=== PATIENT | male | born 1985 | race Caucasian/White ===

== ENCOUNTER 2021-01-30 23:19 | Emergency (ER) | payer OTHER ==
[~2021-01-30] VITALS: Ht 175.3 cm; Wt 75.0 kg
--- NOTE | 2021-01-31 00:25 | PHYS DOC ---
Past History Past Medical History: No Pertinent History Past Surgical History: Cholecystectomy Alcohol Use: None Drug Use: None Adult General Chief Complaint Chief Complaint: LOWER EXT PAIN HPI HPI Patient is a 35-year-old male who presents with left knee and foot pain. 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 States that the machine tipped forward and he jumped off the back and when he landed, hurt his left knee and foot. States after about 6 out of 10, sharp in nature. Denies any radiation of the pain. States he is able to walk it just causes discomfort. Denies any other injuries. States he did not take any pain medicine for this. Review of Systems Review of Systems Review of systems otherwise unremarkable except noted in HPI Allergies Allergies Allergies Coded Allergies Type Severity Reaction Last Updated Verified hydrocodone Allergy Intermediate 01/30/21 Yes Physical Exam Physical Exam Constitutional: Well developed, well nourished, no acute distress, non-toxic appearance. [] HENT: Normocephalic, atraumatic, Cardiovascular:Heart rate regular rhythm, no murmur [] Lungs & Thorax: Bilateral breath sounds clear to auscultation [] Abdomen: Bowel sounds normal, soft, no tenderness, no masses, no pulsatile masses. [] Skin: Warm, dry, no erythema, no rash. [] Back: No tenderness, Extremities: Tenderness around the left knee with no obvious bruising or swelling. Tenderness around left foot, generalized with no obvious bruising or swelling Neurologic: Alert and oriented X 3, no focal deficits noted. [] Psychologic: Affect normal, judgement normal, mood normal. [] Current Patient Data Vital Signs Vital Signs Date Time Temp Pulse Resp B/P (MAP) Pulse Ox O2 Delivery O2 Flow Rate FiO2 01/30/21 23:30 98.3 68 18 126/73 (90) 98 Room Air EKG EKG [] Radiology/Procedures Radiology/Procedures []NDICATION: Reason: Abnormal plain film left knee, severe pain and swelling from fall / Spl. Instructions: / History: . COMPARISON: Plain film from earlier same day. TECHNIQUE: Axial CT images obtained through the left knee. One or more of the following individualized dose reduction techniques were utilized for this examination: 1. Automated exposure control; 2. Adjustment of the mA and/or kV according to patient size; 3. Use of iterative reconstruction technique. FINDINGS: Minimally displaced acute appearing fracture is identified at the lateral aspect of the lateral tibial plateau at the region of seen on plain film. No evidence of dislocation. Moderate lipohemarthrosis. Edema of Hoffa's fat pad. IMPRESSION: * Minimally displaced lateral tibial plateau fracture with associated lipohemarthrosis. Electronically signed by: Anshu Lozano MD (01/31/2021 1:56 AM) [id number] Heart Score C/O Chest Pain: No Risk Factors: Risk Factors: DM, Current or recent (<one month) smoker, HTN, HLP, family history of CAD, obesity. Risk Scores: Risk Factors: DM, Current or recent (<one month) smoker, HTN, HLP, family history of CAD, obesity. Course & Med Decision Making Course & Med Decision Making Patient is a 35-year-old male who presents to the emergency department for left knee and foot pain after jumping off a piece of machinery at work Vital signs not concerning. Physical exam noted above. Patient given Tylenol, ibuprofen and ice. Freddie wrap. Imaging notable for minimally displaced lateral tibial plateau fracture with associated lipohemarthrosis. Placed in a posterior long-leg splint. Made nonweightbearing and given crutches. Given Percocet for pain. Discussed all findings with patient and advised nonweightbearing and crutches only when walking. Gave splint care instructions. Advised to call orthopedic surgery at [facility] first thing in the morning to set up a follow- up appointment as soon as possible for continued evaluation and treatment. Also advised to call primary care physician to update them on ED visit. Gave return precautions to the ED. Patient grateful, verbalized understanding and agreed with plan of discharge. Dragon Disclaimer Dragon Disclaimer This electronic medical record was generated, in whole or in part, using a voice recognition dictation system. Departure Departure: Impression: Primary Impression: Tibial plateau fracture, left Disposition: 01 HOME / SELF CARE / HOMELESS Condition: GOOD Referrals: DANIELLA CRAVEN APRN (PCP) Patient Instructions: Splint Care-Brief, Tibial Plateau Fracture, Displaced, Adult Additional Instructions: Please read all of the attached information on your diagnosis. Please take your pain medicine as prescribed. Please use your crutches at all times when you need to walk, as you should not be putting any weight on the leg. Please keep your splint on until you see the orthopedic surgeons. Please call the orthopedic surgeons at [facility] at [phone] first thing in the morning to discuss your ED visit and set up a follow-up visit as soon as you can to discuss further evaluation and treatment. Please call your primary care physician first thing in the morning to update on ED visit. Please come back to the emergency department immediately with any new or concerning symptoms as discussed. Scripts Oxycodone HCl/Acetaminophen (Percocet 5-325 mg Tablet) 1 Each Tablet 1 TAB PO QID PRN for fracture MDD 2 Tablet(s) for 5 Days, #20 TAB 0 Refills Prov: BARRY VALLE MD 01/31/21 BARRY VALLE MD January 31, 2021 00:25
[2021-01-31] MEDS: ACETAMINOPHEN 500 MG TABLET PO ONE (00:51)
[2021-01-31] MEDS: IBUPROFEN 600 MG TABLET. PO ONE (00:51)
--- NOTE | 2021-01-31 01:09 | RAD ---
INDICATION: Reason: Fall, left leg pain / Spl. Instructions: / History: COMPARISON: None. IMPRESSION: Left knee: 3 views obtained. Linear lucency at the lateral corner of the lateral tibial plateau. This is seen on only one view. If the patient has pain at this site this could be secondary to a nondispl aced fracture but a questionable finding given that this is not seen on the other view. No evidence o f dislocation. Small joint effusion as well as edema of Hoffa's fat pad. Left foot: 3 views obtained. There is some degenerative changes of the foot with early osteophyte for mation. No definite acute fracture line is seen. Electronically signed by: Anshu Lozano MD (01/31/2021 1:06 AM) [id number]
--- NOTE | 2021-01-31 01:58 | RAD ---
INDICATION: Reason: Abnormal plain film left knee, severe pain and swelling from fall / Spl. Instruct ions: / History: . COMPARISON: Plain film from earlier same day. TECHNIQUE: Axial CT images obtained through the left knee. One or more of the following individualized dose reduction techniques were utilized for this examinat ion: 1. Automated exposure control; 2. Adjustment of the mA and/or kV according to patient size; 3 . Use of iterative reconstruction technique. FINDINGS: Minimally displaced acute appearing fracture is identified at the lateral aspect of the lateral tibia l plateau at the region of seen on plain film. No evidence of dislocation. Moderate lipohemarthrosis. Edema of Hoffa's fat pad. IMPRESSION: * Minimally displaced lateral tibial plateau fracture with associated lipohemarthrosis. Electronically signed by: Anshu Lozano MD (01/31/2021 1:56 AM) [id number]
[2021-01-31] MEDS ORDERED: OXYC-325 PO (02:25)
[2021-01-31] MEDS ORDERED: oxyCODONE/APAP 5/325 1 TAB TABLET PO ONE (02:30)
[2021-01-31 04:00] VITALS: BP 132/70
== END 2021-01-31 04:11 | disposition home or self-care (01) ==
LOC: ER 23:19
DX: S82.142A Displaced bicondylar fracture of left tibia, initial encounter for closed fracture (principal); Z88.5 Allergy status to narcotic agent; W17.89XA Other fall from one level to another, initial encounter; Y93.39 Activity, other involving climbing, rappelling and jumping off; Y92.89 Other specified places as the place of occurrence of the external cause; Y99.8 Other external cause status
CPT/HCPCS: 29505; 73562; 73630; 73700; 99284-25

== ENCOUNTER 2021-02-08 11:06 | Emergency (ER) | payer OTHER ==
[~2021-02-08] VITALS: Ht 175.3 cm; Wt 75.0 kg
[~2021-02-08 11:06] MED LIST: OXYC-325 PO
--- NOTE | 2021-02-08 11:50 | PHYS DOC ---
Past History Past Medical History: No Pertinent History Past Surgical History: Cholecystectomy Alcohol Use: None Drug Use: None General Adult EDM: Chief Complaint: LOWER EXTREMITY SWELLING HPI: HPI: 35-year-old male presents with left lower extremity swelling and pain. The patient recently had an accident where he broke his tibial plateau. He went to see the orthopedic surgeon 2 days ago and after that appointment he started having swelling of the left foot and left calf. He called the orthopedic surgeon today because he was not getting better. He advised he come to the emergency room for evaluation for DVT. Patient tells me that earlier this morning, the foot was almost purplish color and very swollen. It has improved some at this point. The pain has decreased but is still present. He can feel a knot in his calf. Patient denies shortness of breath, dizziness. He still has full sensation in the lower leg and foot. Review of Systems: Review of Systems: Constitutional: Denies fever or chills Eyes: Denies change in visual acuity HENT: Denies nasal congestion or sore throat Respiratory: Denies cough or shortness of breath Cardiovascular: Denies chest pain or edema GI: Denies abdominal pain, nausea, vomiting, bloody stools or diarrhea : Denies dysuria Musculoskeletal: Left lower leg pain and swelling Integument: Denies rash Neurologic: Denies headache, focal weakness or sensory changes Endocrine: Denies polyuria or polydipsia Lymphatic: Denies swollen glands Psychiatric: Denies depression or anxiety Allergies: Allergies: Allergies Coded Allergies Type Severity Reaction Last Updated Verified hydrocodone Allergy Intermediate 01/30/21 Yes Physical Exam: PE: Constitutional: Well developed, well nourished, no acute distress, non-toxic appearance. [] HENT: Normocephalic, atraumatic, bilateral external ears normal, oropharynx moist, no oral exudates, nose normal. [] Eyes: PERRLA, EOMI, conjunctiva normal, no discharge. [] Neck: Normal range of motion, no tenderness, supple, no stridor. [] Cardiovascular:Heart rate regular rhythm, no murmur [] Lungs & Thorax: Bilateral breath sounds clear to auscultation [] Abdomen: Bowel sounds normal, soft, no tenderness, no masses, no pulsatile masses. [] Skin: Warm, dry, no erythema, no rash. [] Back: No tenderness, no CVA tenderness. [] Extremities: Pedal pulses present bilaterally, ecchymosis around the left knee and calf. Palpable superficial mass left mid calf. Swelling of the calf and foot compared to right. [] Neurologic: Alert and oriented X 3, normal motor function, normal sensory function, no focal deficits noted. [] Psychologic: Affect normal, judgement normal, mood normal. [] Current Patient Data: Vital Signs: Vital Signs Date Time Temp Pulse Resp B/P (MAP) Pulse Ox O2 Delivery O2 Flow Rate FiO2 02/08/21 11:33 97.8 76 16 134/66 (88) 98 Room Air EKG: EKG: [] Radiology/Procedures: Radiology/Procedures: [] Impressions: LEFT LEG VENOUS DOPPLER STUDY: Clinical indications: Left lower extremity swelling status post tibial plateau fracture. Findings: Duplex sonography (including renee scale evaluation and color flow and waveform spectral analysis) of the proximal aspect of the greater saphenous vein and the proximal aspect of the profunda femoral vein and the entire length of the common femoral and superficial femoral and popliteal veins and the tibioperoneal trunk and the proximal aspect of the posterior tibial and peroneal veins of the left leg was performed. Normal compressibility, augmentation of color Doppler flow after calf compression, and respiratory variation of Doppler flow is seen. Thus, there are no sonographic findings of deep venous thrombosis within these veins. Impression: There are no sonographic findings of deep venous thrombosis within the veins discussed above of the left lower extremity. Electronically signed by: Jarrod Zuniga MD (02/08/2021 12:28 PM) [id number] DICTATED AND SIGNED BY: JARROD ZUNIGA MD DATE: 02/08/21 1227 CC: MINESH SMYTH DO; DANIELLA CRAVEN APRN ~MTH0 0 DUPLEX SONOGRAPHY OF THE PERIPHERAL ARTERIAL SYSTEM OF LEFT LOWER EXTREMITY Clinical indications: History of tibial plateau fracture. Left leg swelling. Decreased pulses. Findings: Duplex sonography of the peripheral arterial system of left lower extremity including renee scale and color flow and spectral waveform analysis was performed.Triphasic waveforms are seen. No occlusive disease is seen. No significant plaque formation or stenosis is identified. The measurements were performed using the NASCET criteria. Peak systolic flow velocities are as follows: Left leg: common femoral artery- 130 cm/sec, profunda femoral artery -60 cm/sec, proximal superficial femoral artery- 102cm/sec, mid superficial femoral artery- 124 cm/sec, distal superficial femoral artery- 78 cm/sec, popliteal artery -62 cm/sec, proximal posterior tibial artery -56 cm/sec, distal posterior tibial artery- 68 cm/sec, peroneal artery -32 cm/sec, anterior tibial artery - 51 cm/sec, dorsalis pedis artery- 32 cm/sec. IMPRESSION: No significant peripheral arterial vascular disease of the left lower extremity is seen by duplex sonographic evaluation. Electronically signed by: Jarrod Zuniga MD (02/08/2021 12:32 PM) [id number] DICTATED AND SIGNED BY: JARROD ZUNIGA MD DATE: 02/08/21 1229 CC: MINESH SMYTH DO; DANIELLA CRAVEN APRN ~MTH0 0 Heart Score: C/O Chest Pain: N/A Risk Factors: Risk Factors: DM, Current or recent (<one month) smoker, HTN, HLP, family history of CAD, obesity. Risk Scores: Score 0 - 3: 2.5% MACE over next 6 weeks - Discharge Home Score 4 - 6: 20.3% MACE over next 6 weeks - Admit for Clinical Observation Score 7 - 10: 72.7% MACE over next 6 weeks - Early Invasive Strategies Course & Med Decision Making: Course & Med Decision Making Pertinent Labs and Imaging studies reviewed. (See chart for details) The patient's ultrasound and arterial evaluation of lower extremity are both negative. Patient is reassured by these results. He will follow-up with orthopedics as needed. He is stable for discharge at this time. [] Dragon Disclaimer: Mignon Disclaimer: This electronic medical record was generated, in whole or in part, using a voice recognition dictation system. Departure Departure: Impression: Primary Impression: Localized swelling of left lower extremity Disposition: HOME / SELF CARE / HOMELESS Condition: STABLE Referrals: DANIELLA CRAVEN APRN (PCP) Patient Instructions: Edema, [id number] MINESH SMYTH DO February 08, 2021 11:50
--- NOTE | 2021-02-08 12:30 | RAD ---
LEFT LEG VENOUS DOPPLER STUDY: Clinical indications: Left lower extremity swelling status post tibial plateau fracture. Findings: Duplex sonography (including renee scale evaluation and color flow and waveform spectral dominick lysis) of the proximal aspect of the greater saphenous vein and the proximal aspect of the profunda f emoral vein and the entire length of the common femoral and superficial femoral and popliteal veins a nd the tibioperoneal trunk and the proximal aspect of the posterior tibial and peroneal veins of the left leg was performed. Normal compressibility, augmentation of color Doppler flow after calf tete dipak, and respiratory variation of Doppler flow is seen. Thus, there are no sonographic findings of d eep venous thrombosis within these veins. Impression: There are no sonographic findings of deep venous thrombosis within the veins discussed ab ove of the left lower extremity. Electronically signed by: Jarrod Zuniga MD (02/08/2021 12:28 PM) [id number]
--- NOTE | 2021-02-08 12:34 | RAD ---
DUPLEX SONOGRAPHY OF THE PERIPHERAL ARTERIAL SYSTEM OF LEFT LOWER EXTREMITY Clinical indications: History of tibial plateau fracture. Left leg swelling. Decreased pulses. Findings: Duplex sonography of the peripheral arterial system of left lower extremity including renee scale and color flow and spectral waveform analysis was performed.Triphasic waveforms are seen. No oc clusive disease is seen. No significant plaque formation or stenosis is identified. The measurements were performed using the NASCET criteria. Peak systolic flow velocities are as follows: Left leg: common femoral artery- 130 cm/sec, profunda femoral artery -60 cm/sec, proximal superficia l femoral artery- 102cm/sec, mid superficial femoral artery- 124 cm/sec, distal superficial femoral a rtery- 78 cm/sec, popliteal artery -62 cm/sec, proximal posterior tibial artery -56 cm/sec, distal po sterior tibial artery- 68 cm/sec, peroneal artery -32 cm/sec, anterior tibial artery -51 cm/sec, dors emanuel pedis artery- 32 cm/sec. IMPRESSION: No significant peripheral arterial vascular disease of the left lower extremity is seen b y duplex sonographic evaluation. Electronically signed by: Jarrod Zuniga MD (02/08/2021 12:32 PM) [id number]
[2021-02-08 12:45] VITALS: BP 132/69
== END 2021-02-08 12:55 | disposition home or self-care (01) ==
LOC: ER 11:06
DX: S80.02XA Contusion of left knee, initial encounter (principal); M79.89 Other specified soft tissue disorders; M79.662 Pain in left lower leg; Z90.49 Acquired absence of other specified parts of digestive tract; X58.XXXA Exposure to other specified factors, initial encounter; Y93.89 Activity, other specified; Y92.89 Other specified places as the place of occurrence of the external cause; Y99.8 Other external cause status
CPT/HCPCS: 93926; 93971; 99285-25